=== PATIENT | female | born 1945 | race Caucasian/White ===

== ENCOUNTER 2018-07-31 12:14 | Emergency (ER) | payer OTHER ==
[~2018-07-31] VITALS: Ht 152.4 cm; Wt 76.2 kg
[~2018-07-31 12:14] MED LIST: CIPRO500 MG PO; FLAGYL500MG PO; MICARDIS40 MG PO; NORVASC2.5 MG; NORVASC2.5 MG PO; NORVASC5 MG; NORVASC5 MG PO; PEPCID20 MG PO; PROBIOTIC & AC1 EACH PO; PROTONIX40 MG PO; SEPTRA DS TABLE1 TAB PO; ULTRACET PO; ZANTAC15 MG/ML PO; ZESTRIL10 MG; ZESTRIL10 MG PO
== END 2018-07-31 19:36 | disposition home or self-care (01) ==
LOC: ER 12:14
DX: B34.9 Viral infection, unspecified (principal); J09.X2 Influenza due to identified novel influenza A virus with other respiratory manifestations

== ENCOUNTER 2020-09-04 14:19 | Emergency (ER) | payer OTHER ==
[~2020-09-04] VITALS: Ht 121.9 cm; Wt 75.7 kg
== END 2020-09-04 18:28 | disposition home or self-care (01) ==
LOC: ER 14:19
DX: H66.92 Otitis media, unspecified, left ear (principal); K21.9 Gastro-esophageal reflux disease without esophagitis; Z03.818 Encounter for observation for suspected exposure to other biological agents ruled out

== ENCOUNTER → 2020-10-01 | Outpatient (CLI) | payer OTHER | END | disposition home or self-care (01) | LOC: OFIC 805 12:30 | PROVIDERS: ATTEND Otolaryngology | DX: H60.8X2 Other otitis externa, left ear (principal); H61.23 Impacted cerumen, bilateral; H90.3 Sensorineural hearing loss, bilateral ==

== ENCOUNTER 2020-10-23 02:02 | Emergency (ER) | payer OTHER ==
[~2020-10-23] VITALS: Ht 152.4 cm; Wt 78.0 kg
[2020-10-23] MEDS ORDERED: CELEBREX100 MG PO (11:33)
[2020-10-23] MEDS ORDERED: TAMS0.4C PO (11:33)
[2020-10-23] MEDS ORDERED: PYRIDIUM200 MG PO (11:33)
[2020-10-23] MEDS ORDERED: ULTRAM50 MG PO (11:33)
== END 2020-10-23 12:22 | disposition home or self-care (01) ==
LOC: ER 02:02
DX: N13.2 Hydronephrosis with renal and ureteral calculous obstruction (principal)

== ENCOUNTER 2020-10-23 13:04 | Emergency (ER) | payer OTHER ==
[~2020-10-23] VITALS: Ht 160 cm; Wt 68.0 kg
[~2020-10-23 13:04] MED LIST changes: +CELEBREX100 MG PO; +PYRIDIUM200 MG PO; +TAMS0.4C PO; +ULTRAM50 MG PO
== END 2020-10-23 21:08 | disposition home or self-care (01) ==
LOC: ER 13:04
DX: N20.1 Calculus of ureter (principal); R11.2 Nausea with vomiting, unspecified

== ENCOUNTER 2021-11-19 17:49 | Inpatient (IN) | payer OTHER ==
[~2021-11-19] VITALS: Ht 152.4 cm; Wt 78.9 kg
[2021-11-19] MEDS ORDERED: NORVASC2.5 M1 (18:06)
[2021-11-19] MEDS ORDERED: PROTONIX20 MG (18:07)
[2021-11-19] MEDS ORDERED: LEXAPRO5 MG (18:07)
--- NOTE | 2021-11-19 18:18 | NUR ---
SE RECIBE PTE ALERTA Y ORIENTADA X 3 ESFERAS EN [place] [facility]UAL INDICA QUE SE ENCONTRABA ADMITIDA EN EL [facility] POR DIVERTICULITIS Y QUE EXONERO. INDICA QUE PRESENTA DOLOR ABDOMINAL DESDE HACE 3 ALEXANDER Y MAREOS. SE REALIZA EKG Y SE PRESENTA A .
--- NOTE | 2021-11-19 18:30 | NUR ---
SE LE ORIENTA A PACIENTE SOBRE LAS ORDENES MEDICAS, REFIERE ENTEDER LAS MISMAS. SE CANALIZA Y SE LE COLOCA LOS IVF'S, SE LE PATRICIO LAS MUETRAS DE YUE, SE LE RELIZA CT ABDOMINAL Y SE LE ADMINISTRAN LOS MEDICAMENTOS, ROSEMARIE LAS ORDENES MEDICAS.
== END 2021-11-21 18:44 | disposition home or self-care (01) | DRG 392 ==
LOC: ER 17:49 → MEDJ 23:03 → MEDI 11-20 10:46
PROVIDERS: ADMIT Internal Medicine; ATTEND Internal Medicine
PROC: BW21ZZZ Computerized Tomography (CT Scan) of Abdomen and Pelvis (ICD-10-PCS; principal; 2021-11-19)
DX: K57.32 Diverticulitis of large intestine without perforation or abscess without bleeding (principal); K29.60 Other gastritis without bleeding; I10 Essential (primary) hypertension; K21.9 Gastro-esophageal reflux disease without esophagitis; Z20.822 Contact with and (suspected) exposure to COVID-19

== ENCOUNTER 2023-02-08 14:56 | Emergency (ER) | payer OTHER ==
[~2023-02-08] VITALS: Ht 152.4 cm; Wt 78.0 kg
[~2023-02-08 14:56] MED LIST changes: +LEXAPRO5 MG; +NORVASC2.5 M1; +PROTONIX20 MG
[2023-02-08] MEDS ORDERED: GLIMEPIRIDE2 MG (15:52)
== END 2023-02-08 18:38 | disposition home or self-care (01) ==
LOC: ER 14:56
DX: B02.8 Zoster with other complications (principal); E11.9 Type 2 diabetes mellitus without complications; I10 Essential (primary) hypertension; Z88.0 Allergy status to penicillin

== ENCOUNTER 2023-06-19 15:20 | Emergency (ER) | payer OTHER ==
[~2023-06-19] VITALS: Ht 160 cm; Wt 90.7 kg
[~2023-06-19 15:20] MED LIST changes: +GLIMEPIRIDE2 MG
[2023-06-19] MEDS ORDERED: ZETIA10 MG (15:42)
== END 2023-06-19 19:10 | disposition home or self-care (01) ==
LOC: ER 15:20
DX: M54.89 Other dorsalgia (principal); Z88.0 Allergy status to penicillin
CPT/HCPCS: 96372; 99283; J1885; J2360

== ENCOUNTER 2024-09-10 17:54 | Emergency (ER) | payer OTHER ==
[~2024-09-10] VITALS: Ht 152.4 cm; Wt 79.4 kg
[~2024-09-10 17:54] MED LIST changes: +ZETIA10 MG
[2024-09-10] MEDS ORDERED: ONDANSETRON HCL 2 MG/ML VIAL ONE (21:37)
[2024-09-10] MEDS ORDERED: 0.9 % SODIUM CHLORIDE 1,000 ML IV SCH (21:45)
[2024-09-10] MEDS ORDERED: ONDANSETRON HCL 2 MG/ML VIAL IV ONE (21:45)
[2024-09-10 22:19] LABS: HEMATOCRIT 40.6 % (36.0-45.00); HEMOGLOBIN 13.4 g/dL (12.0-15.00); MEAN CORPUSCULAR HEMOGLOBIN 29.4 pg (27.00-32.0); PLATELET COUNT 299 K/uL (150-450); RED BLOOD COUNT 4.56 M/uL (4.00-6.00); RED CELL DISTRIBUTION WIDTH 13.2 % (11.5-14.5)
[2024-09-10 22:20] LABS: PH,URINE 7.5 (5.0-8.0); URINE APPEARANCE Clear; URINE BILIRRUBIN Negative (NEGATIVE); URINE BLOOD Trace; URINE COLOR Yellow; URINE GLUCOSE Negative (NEGATIVE); URINE KETONE Negative (NEGATIVE); URINE LEUKOCYTE Trace; URINE NITRATE Negative; URINE PROTEIN Negative (NEGATIVE); URINE UROBILINOGEN 0.2 E.U./dl
[2024-09-10 22:24] LABS: URINE EPITHELIAL CELLS 4.9 uL (0.0-38.8); URINE WBC 10.7 uL (0.0-23.2)
[2024-09-10 22:46] LABS: BILIRUBIN TOTAL 0.31 mg/dL (0.3-1.2); CALCIUM 9.9 mg/dL (8.5-10.1); CREATININE SERUM 0.92 mg/dL (0.55-1.02); GFR 58.73; GLOBULINA 4.6 G/DL (2.4-3.5); POTASSIUM 4.35 mEq/L (3.5-5.1); TOTAL PROTEIN 8.6 gm/dL (6.4-8.2)
== END 2024-09-11 01:35 | disposition home or self-care (01) ==
LOC: ER 17:57
PROVIDERS: Emergency Medicine
DX: K21.9 Gastro-esophageal reflux disease without esophagitis (principal); R11.10 Vomiting, unspecified; I10 Essential (primary) hypertension; Z88.0 Allergy status to penicillin

== ENCOUNTER 2024-12-07 13:47 | Emergency (ER) | payer OTHER ==
[~2024-12-07] VITALS: Ht 149.9 cm; Wt 78.0 kg
[2024-12-07 16:32] LABS: HEMATOCRIT 38.6 % (36.0-45.00); HEMOGLOBIN 12.7 g/dL (12.0-15.00); MEAN CELL VOLUME 88.7 fL (80.00-100.00); MEAN CORPUSCULAR HEMOGLOBIN 29.3 pg (27.00-32.0); PLATELET COUNT 233 K/uL (150-450); RED BLOOD COUNT 4.35 M/uL (4.00-6.00); RED CELL DISTRIBUTION WIDTH 13.3 % (11.5-14.5)
[2024-12-07 16:48] LABS: PH,URINE 5.5 (5.0-8.0); URINE APPEARANCE Clear; URINE BILIRRUBIN Negative (NEGATIVE); URINE BLOOD Negative; URINE COLOR Yellow; URINE GLUCOSE Negative (NEGATIVE); URINE KETONE Negative (NEGATIVE); URINE LEUKOCYTE Small; URINE NITRATE Negative; URINE PROTEIN Negative (NEGATIVE); URINE UROBILINOGEN 0.2 E.U./dl
[2024-12-07 16:52] LABS: URINE BACTERIA 204.3 uL (0.0-1933); URINE EPITHELIAL CELLS 78.4 uL (0.0-38.8); URINE RBC 9.7 uL (0.0-20.8); URINE WBC 43.1 uL (0.0-23.2)
[2024-12-07 16:55] LABS: URINE CAST 0.29 uL (0.0-1.40)
[2024-12-07 17:08] LABS: ALBUMIN 3.7 gm/dL (3.4-5.0); BILIRUBIN TOTAL 0.2 mg/dL (0.3-1.2); CALCIUM 9.5 mg/dL (8.5-10.1); CREATININE SERUM 0.86 mg/dL (0.55-1.02); GFR 63.49; GLOBULINA 4.4 G/DL (2.4-3.5); POTASSIUM 4.44 mEq/L (3.5-5.1); TOTAL PROTEIN 8.1 gm/dL (6.4-8.2)
[2024-12-07] MEDS ORDERED: MACROBID 100 M100 MG PO (18:20)
[2024-12-07] MEDS ORDERED: CLOTRIMAZOLE45 G1 TP (18:20)
== END 2024-12-07 18:27 | disposition home or self-care (01) ==
LOC: ER 13:48
DX: N39.0 Urinary tract infection, site not specified (principal); I10 Essential (primary) hypertension; E11.9 Type 2 diabetes mellitus without complications; Z79.84 Long term (current) use of oral hypoglycemic drugs; Z88.0 Allergy status to penicillin